=== PATIENT | female | born 2005 | race African-American/Black ===

== ENCOUNTER 2024-03-11 15:05 | Emergency (ER) | payer OTHER, MEDICAID, SELFPAY ==
[2024-03-11 15:30] VITALS: BP 116/72; PULSE 68; RESP 16; TEMP 36.6; O2SAT 99
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
[2024-03-11] MEDS: IBUPROFEN 400 MG TABLET 800 MG PO (16:16)
[2024-03-11] MEDS: methocarbamoL 750 MG TABLET 1500 MG PO (16:17)
[2024-03-11 16:38] VITALS: BP 116/65; PULSE 60; RESP 16; O2SAT 100
== END 2024-03-11 17:00 | disposition home or self-care (01) ==
PROVIDERS: Emergency Provider Emergency Medicine
DX: M54.50 Low back pain, unspecified (principal); V49.50XA Passenger injured in collision with unspecified motor vehicles in traffic accident, initial encounter
CPT/HCPCS: 99283; A9270